=== PATIENT | female | born 1975 | race Hispanic/Latino ===

== ENCOUNTER → 2025-07-17 | Day surgery (SDC) | payer BC ==
[2025-07-09 09:01] LABS: BASOPHILS % 0.6 % (0.0-1.0); EOSINOPHILS % 2.4 % (0.0-6.0); LYMPHOCYTES % 35.2 % (18.0-39.1); MONOCYTES % 6.5 % (4.4-11.3); NEUTROPHILS % 55.1 % (38.7-80.0); RED CELL DISTRIBUTION WIDTH 17.2 % (11.7-14.4)
[2025-07-09 09:37] LABS: EST GLOMERULAR FILTRATION RATE 107.0 ML/MIN (>=60)
[~2025-07-17] MED LIST: ACETAMINOPHEN 1000 MG/100 ML 100 ML IV ONE; ALPRAZOLAM1 M1 PO; DEXAMETHASONE SOD PHOS INJ 4 MG/ML SDV ONE; DULOXETINE HCL60 MG PO; FENTANYL CITRATE/PF 100MCG/2 ML INJ ONE; LIDOCAINE HCL 2% LOCAL INJ 5 ML SDV VIAL INJ ONE; NEURONTIN300 MG PO; ONDANSETRON HCL INJ 2MG/ML 2ML 2 MG/ML VIAL ONE; PROPOFOL IV EMULSION 10 MG/ML 20 ML VIAL ONE; QUETIAPINE FUM100 MG PO; SEMAGLUTID0.25 MG/0.; SEVOFLURANE INHAL SOLN 250 ML PEN BTL ONE; VITAMIN C500 MG PO; ZYRTEC10 M3; [UNRECOGNIZED DRUG - OTHER]
[2025-07-17] MEDS: LACTATED RINGER'S 1,000 ML ONE (11:09)
[2025-07-17 12:59] VITALS: TEMP 97.4
[2025-07-17 14:00] VITALS: BP 140/76; PULSE 75; RESP 18; O2SAT 100
== END | disposition home or self-care (01) ==
LOC: OR 08:26
PROVIDERS: ATTEND Surgery
DX: D17.9 Benign lipomatous neoplasm, unspecified (principal); M79.7 Fibromyalgia; D64.9 Anemia, unspecified; F41.9 Anxiety disorder, unspecified; Z79.85 Long-term (current) use of injectable non-insulin antidiabetic drugs; Z79.899 Other long term (current) drug therapy; Z68.36 Body mass index [BMI] 36.0-36.9, adult; Z01.810 Encounter for preprocedural cardiovascular examination; Z01.812 Encounter for preprocedural laboratory examination
CPT/HCPCS: 13101; 13102 ×2; 21933; 36415; 80053; 81025; 85025; 88304; 93005; J0131; J0690; J1100; J2003; J2405; J2704; J3010; J7121